=== PATIENT | male | born 1935 | race Caucasian/White ===

== ENCOUNTER → 2017-01-19 | Outpatient (CLI) | payer MEDICARE | END | disposition home or self-care (01) | LOC: CFH 15:13 | PROVIDERS: ATTEND Physician Assistant | DX: M17.11 Unilateral primary osteoarthritis, right knee (principal); M25.761 Osteophyte, right knee ==

== ENCOUNTER → 2017-02-17 | Outpatient (CLI) | payer MEDICARE | END | disposition home or self-care (01) | LOC: CFH 11:49 | PROVIDERS: ATTEND Physician Assistant | DX: S83.241A Other tear of medial meniscus, current injury, right knee, initial encounter (principal); S83.281A Other tear of lateral meniscus, current injury, right knee, initial encounter; M22.41 Chondromalacia patellae, right knee; N40.0 Benign prostatic hyperplasia without lower urinary tract symptoms; E03.9 Hypothyroidism, unspecified; E11.9 Type 2 diabetes mellitus without complications; G47.39 Other sleep apnea; E78.5 Hyperlipidemia, unspecified; F32.89 Other specified depressive episodes; F41.9 Anxiety disorder, unspecified; W19.XXXA Unspecified fall, initial encounter; Y93.89 Activity, other specified; Y92.89 Other specified places as the place of occurrence of the external cause; Y99.8 Other external cause status ==

== ENCOUNTER 2017-04-05 13:17 | Emergency (ER) | payer MEDICARE ==
[~2017-04-05] VITALS: Ht 172.7 cm; Wt 96.9 kg
[2017-04-05 13:26] VITALS: BP 132/64
[2017-04-05] MEDS ORDERED: ALBUTEROL/IPRATROPIUM 2.5MG/0.5MG, 3 ML NPPB ONE (13:30)
[2017-04-05] MEDS ORDERED: ALBUTEROL/IPRATROPIUM 2.5MG/0.5MG, 3 ML ONE (13:41)
[2017-04-05 14:08] LABS: HEMATOCRIT 36.6 % (39.2-51.8); HEMOGLOBIN 12.5 g/dL (13.7-18.0); WHITE BLOOD COUNT 14.2 x10^3/uL (3.4-10)
[2017-04-05 14:13] LABS: BLOOD UREA NITROGEN 28 mg/dL (7-18)
[2017-04-05 14:18] LABS: IS PT STATUS REG ER OR PRE ER? YES
[2017-04-05 14:28] LABS: RAPID INFLUENZA A INCONCLUSIVE (Negative); RAPID INFLUENZA B INCONCLUSIVE (Negative)
== END 2017-04-05 15:16 | disposition home or self-care (01) ==
LOC: ED 14:54
DX: J09.X2 Influenza due to identified novel influenza A virus with other respiratory manifestations (principal); J45.909 Unspecified asthma, uncomplicated; J31.0 Chronic rhinitis; E11.9 Type 2 diabetes mellitus without complications; F03.90 Unspecified dementia, unspecified severity, without behavioral disturbance, psychotic disturbance, mood disturbance, and anxiety; I10 Essential (primary) hypertension; Z87.891 Personal history of nicotine dependence; Z95.1 Presence of aortocoronary bypass graft
CPT/HCPCS: 36415; 70360; 71010; 80048; 82040; 83880; 84484; 85025; 87400; 99285; J7620

== ENCOUNTER 2017-08-24 21:49 | Emergency (ER) | payer MEDICARE ==
[~2017-08-24] VITALS: Ht 172.7 cm; Wt 95.0 kg
[2017-08-24] MEDS ORDERED: DONE10TA14 PO (22:12)
[2017-08-24] MEDS ORDERED: TAMS0.4C2 PO (22:12)
[2017-08-24] MEDS ORDERED: METF500T4 PO (22:12)
[2017-08-24] MEDS ORDERED: AMIT25TA PO (22:12)
[2017-08-24] MEDS ORDERED: ALPR1TAB6 PO (22:12)
[2017-08-24] MEDS ORDERED: LABE200T3 PO (22:12)
[2017-08-24] MEDS ORDERED: ROSU10TA PO (22:12)
[2017-08-24] MEDS ORDERED: SERT50TA5 PO (22:12)
[2017-08-24 23:46] VITALS: BP 152/66
== END 2017-08-24 23:56 | disposition home or self-care (01) ==
LOC: ED 23:15
DX: S16.1XXA Strain of muscle, fascia and tendon at neck level, initial encounter (principal); S09.90XA Unspecified injury of head, initial encounter; I10 Essential (primary) hypertension; E11.9 Type 2 diabetes mellitus without complications; J45.909 Unspecified asthma, uncomplicated; Z88.5 Allergy status to narcotic agent; W18.30XA Fall on same level, unspecified, initial encounter; Y93.89 Activity, other specified; Y92.009 Unspecified place in unspecified non-institutional (private) residence as the place of occurrence of the external cause; Y99.8 Other external cause status
CPT/HCPCS: 70450; 72125; 99284

== ENCOUNTER 2018-10-09 12:48 | Inpatient (IN) | payer MEDICARE ==
[~2018-10-09] VITALS: Ht 170.2 cm; Wt 81.1 kg
[~2018-10-09 12:48] MED LIST: ALPR1TAB6 PO; AMIT25TA PO; BISA10SU54 PR; DONE10TA14 PO; DRON2.5C2 PO; HUM100IN4 SQ-INSULIN; HYDR-3237 PO; INSU100I11 SQ-INSULIN; INSU100I13 SQ-INSULIN; LABE200T6 PO; LISI-167 PO; MELA1TAB15 PO; MELO15TA24 PO; MEMA5TAB PO; METF500T17 PO; METH750T2 PO; PIPE3.373 IV; POLY17PO5 PO; ROSU10TA2 PO; SENN-177 PO; SERT50TA28 PO; TAMS0.4C2 PO; TRAZ-137 PO
--- NOTE | 2018-10-09 13:07 | NUR ---
TASK RN: PT KJ RODRIGUEZ FROM HOME FOR GENERALIZED WEAKNESS X7 DAYS SINCE GETTING OUT OF REHAB AFTER CERVICAL LAMINECTOMY. PER JENNIFER, STATES WHILE IN REHAB SEVERAL MEDICATION CHANGES MADE, UNKNOWN WHICH ONES. UPON ARRIVAL TO ER PT A&OX4, EQUAL STRONG BUSHLER. CONNECTED TO ALL MONITORING, VSS. PERSISTENT COUGH PT STATES HAS HAD "FOR A WHILE". TECHS AT BEDSIDE PLACING LINE. CALL LIGHT WITHIN REACH. AWAITING MD ASSESSMENT AND ORDERS AT THIS TIME. REPORT GIVEN TO KASSANDRA DENT
--- NOTE | 2018-10-09 13:25 | NUR ---
REPORT TO NAHEED DENT.
--- NOTE | 2018-10-09 13:43 | NUR ---
PT RESTING IN BED, NO ACUTE SIGNS OF DISTRESS. PT IS ORIENTED TO SELF AND PLACE ONLY. MD VICK SAID THAT PT MAY HAVE CAD BECAUSE THERE IS A MIDSTERNAL SCAR PRESENT. PT IS VERY WEAK AND LETHARGIC, BUT RESPONDS APPROPRIATELY WHEN SPOKEN TO. VS ARE STABLE. NICANOR SAYS, "I'M GOING TO ORDER LABS, URINE, AND HE WILL MOST LIKELY BE ADMITTED.
[2018-10-09] MEDS ORDERED: SODIUM CHLORIDE FLUSH 10ML SYR IVF ONE (14:00)
--- NOTE | 2018-10-09 14:08 | NUR ---
TASK RN: PER ERP, STRAIGHT CATH UA SAMPLE. PT NON-COMPLIANT WITH PROCEDURE. ERP MADE AWARE. PRIMARY RNLATHA
[2018-10-09 14:48] LABS: BASOPHILS # (AUTO) 0.08 x10^3/uL (0-0.1); BASOPHILS % (AUTO) 1 % (0-1); EOSINOPHILS # (AUTO) 0.23 x10^3/uL (0-0.4); EOSINOPHILS % (AUTO) 2 % (1-7); LYMPHOCYTES # (AUTO) 2.29 x10^3/uL (1-3.4); LYMPHOCYTES % (AUTO) 22 % (22-44); MD NO; MEAN CORPUSCULAR HGB CONC 32.8 g/dL (33.2-36.2); MEAN CORPUSCULAR VOLUME 94.2 fL (81-97); MEAN PLATELET VOLUME 7.4 fL (7.4-10.4); MONOCYTES # (AUTO) 0.52 x10^3/uL (0.2-0.8); MONOCYTES % (AUTO) 5 % (2-9); NEUTROPHILS # (AUTO) 7.38 x10^3/uL (1.8-6.8); NEUTROPHILS % (AUTO) 70 % (42-75); PLATELET COUNT 331 x10^3/uL (130-400); RED BLOOD COUNT 3.64 x10^6/uL (4.38-5.82); RED CELL DISTRIBUTION WIDTH 15.5 % (9.4-14.8)
[2018-10-09 14:58] LABS: CALCIUM 9.8 mg/dL (8.5-10.1); CHLORIDE 109 mmol/L (98-107)
--- NOTE | 2018-10-09 15:13 | NUR ---
AT BEDSIDE, PT IS STABLE WITH NO SIGNS OF DISTRESS.
[2018-10-09 15:28] LABS: ALANINE AMINOTRANSFERASE 19 U/L (12-78); ALBUMIN 2.8 g/dL (3.4-5.0); ALKALINE PHOSPHATASE 87 U/L (45-117); ANION GAP 9 mmol/L (5-15); BILIRUBIN,TOTAL 0.3 mg/dL (0.2-1.0); CREATININE 1.58 mg/dL (0.7-1.3); TOTAL PROTEIN 7.5 g/dL (6.4-8.2)
[2018-10-09] MEDS ORDERED: METF500T17 PO (16:35)
[2018-10-09] MEDS ORDERED: MEMA10TA PO (16:35)
[2018-10-09] MEDS ORDERED: LEVO50TA5 PO (16:35)
[2018-10-09] MEDS ORDERED: OMEP-110 PO (16:35)
[2018-10-09] MEDS ORDERED: FENO43CA3 PO (16:35)
[2018-10-09] MEDS ORDERED: ALOG6.25 PO (16:35)
--- NOTE | 2018-10-09 17:03 | NUR ---
PT INCONTINENT OF URINE, IS NOT COOPERATIVE WITH STRIAGHT CATH AND GETS EXTREMEMLY AGGITATED. WHILE EXPLAINING PROCEDURE TO PT HE STARTED TO VOID AND I WAS ABLE TO COLLECT THE URINE IN A URINAL. DR FREGOSO INFORMED AND URINE SENT TO LAB.
[2018-10-09] MEDS ORDERED: INSU100C5 SQ-INSULIN (17:07)
[2018-10-09] MEDS ORDERED: INSU100V8 SQ (17:07)
[2018-10-09 17:27] LABS: MICROSCOPIC INDICATED
[2018-10-09 17:28] LABS: CULTURE INDICATED? YES
[2018-10-09] MEDS ORDERED: ACETAMINOPHEN 325 MG TABLET PO PRN (18:00)
[2018-10-09] MEDS ORDERED: morphine SULFATE 10 MG/ML, 1ML IVPush PRN (18:00)
[2018-10-09] MEDS ORDERED: OXYcodone IR 5MG TABLET PO PRN (18:00)
[2018-10-09] MEDS ORDERED: DOCUSATE 100 MG CAPSULE PO PRN (18:00)
[2018-10-09] MEDS ORDERED: POLYETHYLENE GLYCOL 17 GM PACKET PO PRN (18:00)
[2018-10-09] MEDS ORDERED: NITROGLYCERIN 0.4 MG BOTTLE (25 TABS) SL PRN (18:00)
[2018-10-09] MEDS ORDERED: TRAZODONE 100MG TABLET PO PRN (18:00)
[2018-10-09] MEDS ORDERED: BISACODYL 10 MG SUPP PR PRN (18:00)
[2018-10-09] MEDS ORDERED: GUAIFENESIN/COD200MG-20MG/10ML LIQUID PO PRN (18:00)
[2018-10-09] MEDS ORDERED: ONDANSETRON 2MG/ML, 2ML IVPush PRN (18:00)
[2018-10-09 18:58] VITALS: BP 169/67
[2018-10-09] MEDS: LACTATED RINGERS 1,000 ML IV SCH (19:17)
[2018-10-09] MEDS: HEPARIN 5,000 UNITS/ML, 1ML SQ SCH (21:52)
[2018-10-09] MEDS: INSULIN LISPRO 100 UNITS/ML, PEN SQ-INSULIN SCH (21:52)
[2018-10-09] MEDS: INSULIN GLARGINE 100 UNITS/ML, PEN SQ-INSULIN SCH (21:52)
[2018-10-09] MEDS: GUAIFENESIN 200 MG TABLET PO SCH (21:53)
[2018-10-09] MEDS: OMEPRAZOLE 20 MG CAPSULE.DR PO SCH (21:53)
[2018-10-09] MEDS: FLUCONAZOLE 200 MG/100 ML 100 ML IV SCH (21:53)
[2018-10-09] MEDS: FENOFIBRATE 54 MG TABLET PO SCH (21:54)
[2018-10-09] MEDS: MEMANTINE 5MG TABLET PO SCH (21:54)
[2018-10-09] MEDS: ATORVASTATIN 40 MG TABLET PO SCH (21:54)
[2018-10-10] VITALS (7 sets, daily range): BP systolic 108–190; BP diastolic 60–87
[2018-10-10] MEDS: hydrALAzine 20 MG/ML, 1ML IVPush PRN ×2 (01:31→07:36)
[2018-10-10 04:38] LABS: BASOPHILS # (AUTO) 0.11 x10^3/uL (0-0.1); BASOPHILS % (AUTO) 1 % (0-1); EOSINOPHILS # (AUTO) 0.35 x10^3/uL (0-0.4); EOSINOPHILS % (AUTO) 3 % (1-7); LYMPHOCYTES # (AUTO) 2.26 x10^3/uL (1-3.4); LYMPHOCYTES % (AUTO) 19 % (22-44); MD NO; MEAN CORPUSCULAR HEMOGLOBIN 31.3 pg (27.5-34.5); MEAN CORPUSCULAR HGB CONC 33.2 g/dL (33.2-36.2); MEAN CORPUSCULAR VOLUME 94.3 fL (81-97); MEAN PLATELET VOLUME 7.6 fL (7.4-10.4); MONOCYTES # (AUTO) 0.74 x10^3/uL (0.2-0.8); MONOCYTES % (AUTO) 6 % (2-9); NEUTROPHILS # (AUTO) 8.19 x10^3/uL (1.8-6.8); NEUTROPHILS % (AUTO) 70 % (42-75); PLATELET COUNT 349 x10^3/uL (130-400); RED BLOOD COUNT 3.49 x10^6/uL (4.38-5.82); RED CELL DISTRIBUTION WIDTH 15.2 % (9.4-14.8)
[2018-10-10 04:47] LABS: ANION GAP 10 mmol/L (5-15); CALCIUM 9.8 mg/dL (8.5-10.1); CHLORIDE 109 mmol/L (98-107)
[2018-10-10] MEDS: HEPARIN 5,000 UNITS/ML, 1ML SQ SCH ×3 (05:16→21:54)
[2018-10-10] MEDS: GUAIFENESIN 200 MG TABLET PO SCH ×4 (05:16→20:17)
[2018-10-10] MEDS: LACTATED RINGERS 1,000 ML IV SCH ×2 (05:17→17:22)
[2018-10-10] MEDS: SENNA/DOCUSATE TABLET PO SCH (07:20)
[2018-10-10] MEDS: TAMSULOSIN 0.4 MG CAP.ER.24H PO SCH (07:21)
[2018-10-10] MEDS: OMEPRAZOLE 20 MG CAPSULE.DR PO SCH ×2 (07:21→17:20)
[2018-10-10] MEDS: DONEPEZIL 10 MG TABLET PO SCH (07:21)
[2018-10-10] MEDS: MEMANTINE 5MG TABLET PO SCH ×2 (07:21→20:17)
[2018-10-10] MEDS: LEVOTHYROXINE 50 MCG TABLET PO SCH (07:21)
[2018-10-10] MEDS: SERTRALINE 50MG TABLET PO SCH (07:21)
[2018-10-10] MEDS: INSULIN LISPRO 100 UNITS/ML, PEN SQ-INSULIN SCH ×4 (07:22→20:18)
[2018-10-10] MEDS: ALOGLIPTIN BENZOATE 12.5 MG HOMEMEDPO SCH (07:22)
[2018-10-10] MEDS: INSULIN GLARGINE 100 UNITS/ML, PEN SQ-INSULIN SCH ×2 (08:39→20:18)
[2018-10-10] MEDS ORDERED: LABETALOL 200 MG TABLET PO SCH (09:00)
[2018-10-10 10:54] LABS: TROPONIN I < 0.015 ng/mL (0.000-0.045)
[2018-10-10 16:34] LABS: TROPONIN I < 0.015 ng/mL (0.000-0.045)
[2018-10-10] MEDS: NEUTRA PHOS K 250 MG TABLET PO SCH ×2 (17:20→20:17)
[2018-10-10] MEDS: ATORVASTATIN 40 MG TABLET PO SCH (20:17)
[2018-10-10] MEDS: FENOFIBRATE 54 MG TABLET PO SCH (20:17)
[2018-10-10] MEDS: FLUCONAZOLE 200 MG/100 ML 100 ML IV SCH (21:54)
[2018-10-10 23:01] LABS: TROPONIN I < 0.015 ng/mL (0.000-0.045)
[2018-10-11 01:42] VITALS: BP 156/66
[2018-10-11] MEDS: GUAIFENESIN 200 MG TABLET PO SCH ×4 (05:16→20:19)
[2018-10-11] MEDS: HEPARIN 5,000 UNITS/ML, 1ML SQ SCH ×3 (05:17→21:49)
[2018-10-11 06:03] LABS: ANION GAP 8 mmol/L (5-15); CALCIUM 9.6 mg/dL (8.5-10.1); CHLORIDE 109 mmol/L (98-107); CREATININE 1.13 mg/dL (0.7-1.3); MEAN CORPUSCULAR HEMOGLOBIN 30.6 pg (27.5-34.5); MEAN CORPUSCULAR HGB CONC 33.2 g/dL (33.2-36.2); MEAN CORPUSCULAR VOLUME 92.4 fL (81-97); MEAN PLATELET VOLUME 7.1 fL (7.4-10.4); PLATELET COUNT 344 x10^3/uL (130-400); RED BLOOD COUNT 3.68 x10^6/uL (4.38-5.82); RED CELL DISTRIBUTION WIDTH 15.2 % (9.4-14.8)
[2018-10-11 06:44] LABS: BASOPHILS # (AUTO) 0.05 x10^3/uL (0-0.1); BASOPHILS % (AUTO) 0 % (0-1); EOSINOPHILS # (AUTO) 0.28 x10^3/uL (0-0.4); EOSINOPHILS % (AUTO) 2 % (1-7); LYMPHOCYTES # (AUTO) 2.51 x10^3/uL (1-3.4); LYMPHOCYTES % (AUTO) 18 % (22-44); MD SCAN; MONOCYTES # (AUTO) 0.57 x10^3/uL (0.2-0.8); MONOCYTES % (AUTO) 4 % (2-9); NEUTROPHILS # (AUTO) 10.82 x10^3/uL (1.8-6.8); NEUTROPHILS % (AUTO) 76 % (42-75)
[2018-10-11] MEDS: INSULIN LISPRO 100 UNITS/ML, PEN SQ-INSULIN SCH ×4 (07:00→20:34)
[2018-10-11] MEDS ORDERED: SERTRALINE 100MG TABLET ONE (07:42)
[2018-10-11 07:47] VITALS: BP 174/83
[2018-10-11] MEDS: OMEPRAZOLE 20 MG CAPSULE.DR PO SCH ×2 (07:50→16:13)
[2018-10-11] MEDS: NEUTRA PHOS K 250 MG TABLET PO SCH ×3 (07:50→20:19)
[2018-10-11] MEDS: TAMSULOSIN 0.4 MG CAP.ER.24H PO SCH (07:50)
[2018-10-11] MEDS: LEVOTHYROXINE 50 MCG TABLET PO SCH (07:50)
[2018-10-11] MEDS: DONEPEZIL 10 MG TABLET PO SCH (07:50)
[2018-10-11] MEDS: MEMANTINE 5MG TABLET PO SCH ×2 (07:51→20:19)
[2018-10-11] MEDS: SERTRALINE 50MG TABLET PO SCH (07:51)
[2018-10-11] MEDS: ALOGLIPTIN BENZOATE 12.5 MG HOMEMEDPO SCH (07:56)
[2018-10-11] MEDS: SENNA/DOCUSATE TABLET PO SCH (07:57)
[2018-10-11] MEDS: INSULIN GLARGINE 100 UNITS/ML, PEN SQ-INSULIN SCH ×2 (08:37→20:27)
[2018-10-11 13:35] VITALS: BP_SYST 122; BP_SYST 175; BP_DIAS 76; BP_DIAS 87
[2018-10-11] MEDS: LACTATED RINGERS 1,000 ML IV SCH (16:27)
[2018-10-11 16:32] VITALS: BP 178/89
[2018-10-11] MEDS: hydrALAzine 20 MG/ML, 1ML IVPush PRN (16:32)
[2018-10-11 16:57] VITALS: BP 168/77
[2018-10-11 18:26] VITALS: BP 156/81
[2018-10-11] MEDS: FENOFIBRATE 54 MG TABLET PO SCH (20:19)
[2018-10-11] MEDS: ATORVASTATIN 40 MG TABLET PO SCH (20:19)
[2018-10-12] VITALS (8 sets, daily range): BP systolic 92–214; BP diastolic 63–92
[2018-10-12] MEDS: GUAIFENESIN 200 MG TABLET PO SCH ×4 (05:38→21:56)
[2018-10-12] MEDS: HEPARIN 5,000 UNITS/ML, 1ML SQ SCH ×3 (05:38→22:02)
[2018-10-12 05:41] LABS: BASOPHILS # (AUTO) 0.03 x10^3/uL (0-0.1); BASOPHILS % (AUTO) 0 % (0-1); EOSINOPHILS # (AUTO) 0.42 x10^3/uL (0-0.4); EOSINOPHILS % (AUTO) 3 % (1-7); LYMPHOCYTES # (AUTO) 2.56 x10^3/uL (1-3.4); LYMPHOCYTES % (AUTO) 18 % (22-44); MD NO; MEAN CORPUSCULAR HEMOGLOBIN 31.4 pg (27.5-34.5); MEAN CORPUSCULAR HGB CONC 33.2 g/dL (33.2-36.2); MEAN CORPUSCULAR VOLUME 94.4 fL (81-97); MEAN PLATELET VOLUME 7.4 fL (7.4-10.4); MONOCYTES # (AUTO) 0.62 x10^3/uL (0.2-0.8); MONOCYTES % (AUTO) 4 % (2-9); NEUTROPHILS # (AUTO) 10.44 x10^3/uL (1.8-6.8); NEUTROPHILS % (AUTO) 74 % (42-75); PLATELET COUNT 362 x10^3/uL (130-400); RED BLOOD COUNT 3.44 x10^6/uL (4.38-5.82); RED CELL DISTRIBUTION WIDTH 15.1 % (9.4-14.8)
[2018-10-12 05:50] LABS: CHLORIDE 107 mmol/L (98-107)
[2018-10-12 05:56] LABS: ANION GAP 8 mmol/L (5-15); CALCIUM 9.2 mg/dL (8.5-10.1); CREATININE 1.03 mg/dL (0.7-1.3)
[2018-10-12] MEDS: SENNA/DOCUSATE TABLET PO SCH (07:28)
[2018-10-12] MEDS: INSULIN LISPRO 100 UNITS/ML, PEN SQ-INSULIN SCH ×4 (08:13→22:01)
[2018-10-12] MEDS: LEVOTHYROXINE 50 MCG TABLET PO SCH (08:14)
[2018-10-12] MEDS: MEMANTINE 5MG TABLET PO SCH ×2 (08:43→21:56)
[2018-10-12] MEDS: SERTRALINE 50MG TABLET PO SCH (08:43)
[2018-10-12] MEDS: INSULIN GLARGINE 100 UNITS/ML, PEN SQ-INSULIN SCH ×2 (08:43→22:02)
[2018-10-12] MEDS: DONEPEZIL 10 MG TABLET PO SCH (08:43)
[2018-10-12] MEDS: OMEPRAZOLE 20 MG CAPSULE.DR PO SCH ×2 (08:43→15:52)
[2018-10-12] MEDS: NEUTRA PHOS K 250 MG TABLET PO SCH ×3 (08:43→21:54)
[2018-10-12] MEDS: TAMSULOSIN 0.4 MG CAP.ER.24H PO SCH (08:44)
[2018-10-12] MEDS: ALOGLIPTIN BENZOATE 12.5 MG HOMEMEDPO SCH (08:44)
[2018-10-12] MEDS: FENOFIBRATE 54 MG TABLET PO SCH (21:54)
[2018-10-12] MEDS: ATORVASTATIN 40 MG TABLET PO SCH (21:55)
[2018-10-13] VITALS (7 sets, daily range): BP systolic 116–217; BP diastolic 66–96
[2018-10-13] MEDS: GUAIFENESIN 200 MG TABLET PO SCH ×4 (05:17→21:10)
[2018-10-13] MEDS: LEVOTHYROXINE 50 MCG TABLET PO SCH (05:17)
[2018-10-13] MEDS: HEPARIN 5,000 UNITS/ML, 1ML SQ SCH ×3 (05:18→22:23)
[2018-10-13] MEDS: INSULIN LISPRO 100 UNITS/ML, PEN SQ-INSULIN SCH ×4 (08:15→21:11)
[2018-10-13] MEDS: ALOGLIPTIN BENZOATE 12.5 MG HOMEMEDPO SCH (09:00)
[2018-10-13] MEDS ORDERED: AMLODIPINE 2.5 MG TABLET ONE (09:44)
[2018-10-13] MEDS: SENNA/DOCUSATE TABLET PO SCH (09:52)
[2018-10-13] MEDS: SERTRALINE 50MG TABLET PO SCH (09:52)
[2018-10-13] MEDS: INSULIN GLARGINE 100 UNITS/ML, PEN SQ-INSULIN SCH ×2 (09:54→21:11)
[2018-10-13] MEDS: NEUTRA PHOS K 250 MG TABLET PO SCH ×3 (09:54→21:10)
[2018-10-13] MEDS: DONEPEZIL 10 MG TABLET PO SCH (09:54)
[2018-10-13] MEDS: OMEPRAZOLE 20 MG CAPSULE.DR PO SCH ×2 (09:54→16:45)
[2018-10-13] MEDS: MEMANTINE 5MG TABLET PO SCH ×2 (09:55→21:09)
[2018-10-13] MEDS: AMLODIPINE 2.5 MG TABLET PO SCH (10:00)
[2018-10-13] MEDS: FENOFIBRATE 54 MG TABLET PO SCH (21:10)
[2018-10-13] MEDS: ATORVASTATIN 40 MG TABLET PO SCH (21:10)
[2018-10-14 01:29] VITALS: BP 150/83
[2018-10-14] MEDS: HEPARIN 5,000 UNITS/ML, 1ML SQ SCH ×3 (06:00→21:40)
[2018-10-14] MEDS: GUAIFENESIN 200 MG TABLET PO SCH ×4 (06:00→21:34)
[2018-10-14] MEDS: LEVOTHYROXINE 50 MCG TABLET PO SCH (06:00)
[2018-10-14] MEDS: INSULIN LISPRO 100 UNITS/ML, PEN SQ-INSULIN SCH ×4 (07:00→21:37)
[2018-10-14] MEDS: OMEPRAZOLE 20 MG CAPSULE.DR PO SCH ×2 (08:00→16:57)
[2018-10-14] MEDS: MEMANTINE 5MG TABLET PO SCH ×2 (09:00→11:26)
[2018-10-14] MEDS: DONEPEZIL 10 MG TABLET PO SCH ×2 (09:00→11:25)
[2018-10-14] MEDS: ALOGLIPTIN BENZOATE 12.5 MG HOMEMEDPO SCH (09:00)
[2018-10-14] MEDS: INSULIN GLARGINE 100 UNITS/ML, PEN SQ-INSULIN SCH ×2 (09:00→21:39)
[2018-10-14] MEDS: SERTRALINE 50MG TABLET PO SCH ×2 (09:00→11:26)
[2018-10-14] MEDS: NEUTRA PHOS K 250 MG TABLET PO SCH ×3 (09:00→21:35)
[2018-10-14] MEDS: AMLODIPINE 2.5 MG TABLET PO SCH ×2 (09:00→11:26)
[2018-10-14] MEDS: SENNA/DOCUSATE TABLET PO SCH (09:00)
[2018-10-14 11:18] VITALS: BP 179/89
[2018-10-14 16:54] VITALS: BP 180/84
[2018-10-14] MEDS: metFORMIN 500 MG TABLET PO SCH (16:57)
[2018-10-14] MEDS: hydrALAzine 20 MG/ML, 1ML IVPush PRN (17:06)
[2018-10-14 20:21] VITALS: BP 137/75
[2018-10-14] MEDS: ATORVASTATIN 40 MG TABLET PO SCH (21:34)
[2018-10-14] MEDS: FENOFIBRATE 54 MG TABLET PO SCH (21:35)
[2018-10-15 03:45] VITALS: BP 143/82
[2018-10-15 05:47] LABS: BASOPHILS # (AUTO) 0.04 x10^3/uL (0-0.1); BASOPHILS % (AUTO) 0 % (0-1); EOSINOPHILS % (AUTO) 2 % (1-7); LYMPHOCYTES # (AUTO) 2.92 x10^3/uL (1-3.4); LYMPHOCYTES % (AUTO) 21 % (22-44); MD NO; MEAN CORPUSCULAR HEMOGLOBIN 31.2 pg (27.5-34.5); MEAN CORPUSCULAR HGB CONC 33.2 g/dL (33.2-36.2); MEAN CORPUSCULAR VOLUME 94.1 fL (81-97); MEAN PLATELET VOLUME 7.3 fL (7.4-10.4); MONOCYTES # (AUTO) 0.69 x10^3/uL (0.2-0.8); MONOCYTES % (AUTO) 5 % (2-9); NEUTROPHILS # (AUTO) 9.84 x10^3/uL (1.8-6.8); NEUTROPHILS % (AUTO) 71 % (42-75); PLATELET COUNT 431 x10^3/uL (130-400)
[2018-10-15 05:59] LABS: CHLORIDE 109 mmol/L (98-107)
[2018-10-15 06:03] LABS: ANION GAP 7 mmol/L (5-15); CALCIUM 9.9 mg/dL (8.5-10.1)
[2018-10-15] MEDS: LEVOTHYROXINE 50 MCG TABLET PO SCH (06:44)
[2018-10-15] MEDS: GUAIFENESIN 200 MG TABLET PO SCH ×4 (06:44→20:47)
[2018-10-15] MEDS: HEPARIN 5,000 UNITS/ML, 1ML SQ SCH ×3 (06:46→22:06)
[2018-10-15] MEDS: INSULIN LISPRO 100 UNITS/ML, PEN SQ-INSULIN SCH ×4 (06:51→21:03)
[2018-10-15 06:56] VITALS: BP 156/83
[2018-10-15] MEDS: NEUTRA PHOS K 250 MG TABLET PO SCH ×3 (08:35→20:46)
[2018-10-15] MEDS: metFORMIN 500 MG TABLET PO SCH (08:35)
[2018-10-15] MEDS: OMEPRAZOLE 20 MG CAPSULE.DR PO SCH ×2 (08:36→16:38)
[2018-10-15] MEDS: MEMANTINE 5MG TABLET PO SCH ×2 (08:36→20:47)
[2018-10-15] MEDS: SENNA/DOCUSATE TABLET PO SCH (08:37)
[2018-10-15] MEDS: INSULIN GLARGINE 100 UNITS/ML, PEN SQ-INSULIN SCH ×2 (08:37→21:03)
[2018-10-15] MEDS: ALOGLIPTIN BENZOATE 12.5 MG HOMEMEDPO SCH (08:38)
[2018-10-15 12:29] VITALS: BP 146/82
[2018-10-15 18:52] VITALS: BP 132/76
[2018-10-15] MEDS: FENOFIBRATE 54 MG TABLET PO SCH (20:46)
[2018-10-15] MEDS: ATORVASTATIN 40 MG TABLET PO SCH (20:47)
[2018-10-16 01:22] VITALS: BP 142/81
[2018-10-16] MEDS: GUAIFENESIN 200 MG TABLET PO SCH ×2 (06:20→11:08)
[2018-10-16] MEDS: LEVOTHYROXINE 50 MCG TABLET PO SCH (06:20)
[2018-10-16] MEDS: HEPARIN 5,000 UNITS/ML, 1ML SQ SCH ×2 (06:21→14:02)
[2018-10-16 06:50] VITALS: BP 140/85
[2018-10-16] MEDS: NEUTRA PHOS K 250 MG TABLET PO SCH (07:37)
[2018-10-16] MEDS: AMLODIPINE 2.5 MG TABLET PO SCH (07:37)
[2018-10-16] MEDS: metFORMIN 500 MG TABLET PO SCH (07:37)
[2018-10-16] MEDS: SERTRALINE 50MG TABLET PO SCH (07:37)
[2018-10-16] MEDS: OMEPRAZOLE 20 MG CAPSULE.DR PO SCH (07:37)
[2018-10-16] MEDS: MEMANTINE 5MG TABLET PO SCH (07:37)
[2018-10-16] MEDS: DONEPEZIL 10 MG TABLET PO SCH (07:37)
[2018-10-16] MEDS: INSULIN LISPRO 100 UNITS/ML, PEN SQ-INSULIN SCH ×2 (07:38→11:08)
[2018-10-16] MEDS: INSULIN GLARGINE 100 UNITS/ML, PEN SQ-INSULIN SCH (07:38)
[2018-10-16] MEDS: SENNA/DOCUSATE TABLET PO SCH (07:40)
[2018-10-16] MEDS: ALOGLIPTIN BENZOATE 12.5 MG HOMEMEDPO SCH (07:40)
[2018-10-16 10:16] LABS: BASOPHILS # (AUTO) 0.03 x10^3/uL (0-0.1); BASOPHILS % (AUTO) 0 % (0-1); EOSINOPHILS % (AUTO) 2 % (1-7); LYMPHOCYTES # (AUTO) 2.32 x10^3/uL (1-3.4); LYMPHOCYTES % (AUTO) 18 % (22-44); MD NO; MEAN CORPUSCULAR HEMOGLOBIN 31.7 pg (27.5-34.5); MEAN CORPUSCULAR HGB CONC 33.6 g/dL (33.2-36.2); MEAN CORPUSCULAR VOLUME 94.3 fL (81-97); MEAN PLATELET VOLUME 6.8 fL (7.4-10.4); MONOCYTES # (AUTO) 0.22 x10^3/uL (0.2-0.8); MONOCYTES % (AUTO) 2 % (2-9); NEUTROPHILS # (AUTO) 10.02 x10^3/uL (1.8-6.8); NEUTROPHILS % (AUTO) 78 % (42-75); PLATELET COUNT 411 x10^3/uL (130-400); RED BLOOD COUNT 3.81 x10^6/uL (4.38-5.82); RED CELL DISTRIBUTION WIDTH 15.1 % (9.4-14.8)
[2018-10-16 10:25] LABS: ANION GAP 9 mmol/L (5-15); CALCIUM 9.6 mg/dL (8.5-10.1); CHLORIDE 107 mmol/L (98-107); CREATININE 1.33 mg/dL (0.7-1.3)
[2018-10-16 13:53] VITALS: BP 138/76
[2018-10-16] MEDS ORDERED: HEPA50002 SQ (14:06)
[2018-10-16] MEDS ORDERED: GUAI200T3 PO (14:06)
[2018-10-16] MEDS ORDERED: INSU100V8 SQ (14:06)
[2018-10-16] MEDS ORDERED: METF500T17 PO (14:06)
[2018-10-16] MEDS ORDERED: AMLO2.5T5 PO (14:06)
== END 2018-10-16 16:49 | DRG 682 ==
LOC: ED 14:36 → EDIP 16:41 → 3NW 18:07 → 5SO 10-10 10:23 → 4NOR 10-13 17:18
PROVIDERS: ADMIT Internal Medicine; ATTEND Internal Medicine
PROC: 0T9B70Z Drainage of Bladder with Drainage Device, Via Natural or Artificial Opening (ICD-10-PCS; principal; 2018-10-09)
DX: N17.9 Acute kidney failure, unspecified (principal); G93.41 Metabolic encephalopathy; E44.0 Moderate protein-calorie malnutrition; D64.9 Anemia, unspecified; D72.829 Elevated white blood cell count, unspecified; E11.21 Type 2 diabetes mellitus with diabetic nephropathy; E11.22 Type 2 diabetes mellitus with diabetic chronic kidney disease; N18.2 Chronic kidney disease, stage 2 (mild); I12.9 Hypertensive chronic kidney disease with stage 1 through stage 4 chronic kidney disease, or unspecified chronic kidney disease; I95.1 Orthostatic hypotension; E83.42 Hypomagnesemia; E03.9 Hypothyroidism, unspecified; F03.90 Unspecified dementia, unspecified severity, without behavioral disturbance, psychotic disturbance, mood disturbance, and anxiety; E78.5 Hyperlipidemia, unspecified; J45.909 Unspecified asthma, uncomplicated; K21.9 Gastro-esophageal reflux disease without esophagitis; R62.7 Adult failure to thrive; I25.10 Atherosclerotic heart disease of native coronary artery without angina pectoris; G47.33 Obstructive sleep apnea (adult) (pediatric); R29.6 Repeated falls; N40.1 Benign prostatic hyperplasia with lower urinary tract symptoms; N39.498 Other specified urinary incontinence; I25.2 Old myocardial infarction; Z82.3 Family history of stroke; Z68.28 Body mass index [BMI] 28.0-28.9, adult; Z88.8 Allergy status to other drugs, medicaments and biological substances; Z88.6 Allergy status to analgesic agent; Z79.4 Long term (current) use of insulin; Z83.3 Family history of diabetes mellitus; Z87.440 Personal history of urinary (tract) infections; Z87.891 Personal history of nicotine dependence; Z95.1 Presence of aortocoronary bypass graft; Z95.5 Presence of coronary angioplasty implant and graft; Z82.49 Family history of ischemic heart disease and other diseases of the circulatory system
CPT/HCPCS: 36415; 70450; 71045; 80048; 80053; 81001; 82436; 82570; 82607; 82962; 83735; 83935; 84100; 84133; 84300; 84439; 84443; 84484; 85025; 87040; 87086; 93005; 99285; G0378; J1644; J0360; J1450; J1815; J7120

== ENCOUNTER → 2018-11-09 | Outpatient (CLI) | payer MEDICARE ==
[~2018-11-09] MED LIST changes: +ALOG6.25 PO; +AMLO2.5T5 PO; +FENO43CA3 PO; +GUAI200T3 PO; +HEPA50002 SQ; +INSU100C5 SQ-INSULIN; +INSU100V8 SQ; +LEVO50TA5 PO; +MEMA10TA PO; +OMEP-110 PO
[2018-11-09 15:46] LABS: BASOPHILS # (AUTO) 0.06 x10^3/uL (0-0.1); BASOPHILS % (AUTO) 1 % (0-1); EOSINOPHILS # (AUTO) 0.23 x10^3/uL (0-0.4); EOSINOPHILS % (AUTO) 3 % (1-7); LYMPHOCYTES # (AUTO) 2.66 x10^3/uL (1-3.4); LYMPHOCYTES % (AUTO) 29 % (22-44); MD NO; MEAN CORPUSCULAR HEMOGLOBIN 30.9 pg (27.5-34.5); MEAN CORPUSCULAR HGB CONC 32.9 g/dL (33.2-36.2); MEAN CORPUSCULAR VOLUME 94.1 fL (81-97); MEAN PLATELET VOLUME 7.6 fL (7.4-10.4); MONOCYTES # (AUTO) 0.41 x10^3/uL (0.2-0.8); MONOCYTES % (AUTO) 5 % (2-9); NEUTROPHILS % (AUTO) 63 % (42-75); PLATELET COUNT 206 x10^3/uL (130-400); RED BLOOD COUNT 3.45 x10^6/uL (4.38-5.82); RED CELL DISTRIBUTION WIDTH 15.5 % (9.4-14.8)
[2018-11-09 15:54] LABS: ALANINE AMINOTRANSFERASE 21 U/L (12-78); ALBUMIN 3.4 g/dL (3.4-5.0); ANION GAP 4 mmol/L (5-15); CALCIUM 9.6 mg/dL (8.5-10.1); CHLORIDE 111 mmol/L (98-107)
[2018-11-09 15:56] LABS: ALKALINE PHOSPHATASE 105 U/L (45-117); BILIRUBIN,TOTAL 0.2 mg/dL (0.2-1.0); TOTAL PROTEIN 7.3 g/dL (6.4-8.2)
== END | disposition home or self-care (01) ==
LOC: CFH 13:59
PROVIDERS: ATTEND Nurse Practitioner Primary Care
DX: Z13.220 Encounter for screening for lipoid disorders (principal); Z12.11 Encounter for screening for malignant neoplasm of colon; Z12.5 Encounter for screening for malignant neoplasm of prostate; M47.814 Spondylosis without myelopathy or radiculopathy, thoracic region; J18.9 Pneumonia, unspecified organism; E11.9 Type 2 diabetes mellitus without complications; E03.9 Hypothyroidism, unspecified; E78.5 Hyperlipidemia, unspecified; F32.89 Other specified depressive episodes; N40.0 Benign prostatic hyperplasia without lower urinary tract symptoms; G47.39 Other sleep apnea; M62.81 Muscle weakness (generalized); R20.2 Paresthesia of skin; G47.09 Other insomnia; I49.9 Cardiac arrhythmia, unspecified; R06.02 Shortness of breath; D64.9 Anemia, unspecified; N28.9 Disorder of kidney and ureter, unspecified; F41.9 Anxiety disorder, unspecified; M54.5 Low back pain; M25.561 Pain in right knee; K92.1 Melena; R13.10 Dysphagia, unspecified; E83.52 Hypercalcemia; G31.84 Mild cognitive impairment of uncertain or unknown etiology; R39.15 Urgency of urination
CPT/HCPCS: 36415; 71046; 80053; 85025

== ENCOUNTER 2019-03-05 14:08 | Emergency (ER) | payer MEDICARE ==
[~2019-03-05] VITALS: Ht 180.3 cm; Wt 98.0 kg
[~2019-03-05 14:08] MED LIST changes: -GUAI200T3 PO; +GUAI200T37 PO
[2019-03-05 15:20] LABS: BASOPHILS # (AUTO) 0.03 x10^3/uL (0-0.1); BASOPHILS % (AUTO) 0 % (0-1); EOSINOPHILS # (AUTO) 0.16 x10^3/uL (0-0.4); EOSINOPHILS % (AUTO) 2 % (1-7); LYMPHOCYTES # (AUTO) 1.39 x10^3/uL (1-3.4); LYMPHOCYTES % (AUTO) 17 % (22-44); MD NO; MEAN CORPUSCULAR HEMOGLOBIN 30.2 pg (27.5-34.5); MEAN CORPUSCULAR VOLUME 91.6 fL (81-97); MEAN PLATELET VOLUME 7.4 fL (7.4-10.4); MONOCYTES # (AUTO) 0.41 x10^3/uL (0.2-0.8); MONOCYTES % (AUTO) 5 % (2-9); NEUTROPHILS # (AUTO) 6.25 x10^3/uL (1.8-6.8); NEUTROPHILS % (AUTO) 76 % (42-75); PLATELET COUNT 186 x10^3/uL (130-400); RED BLOOD COUNT 4.03 x10^6/uL (4.38-5.82); RED CELL DISTRIBUTION WIDTH 13.7 % (9.4-14.8)
[2019-03-05 15:35] LABS: CHLORIDE 111 mmol/L (98-107)
--- NOTE | 2019-03-05 15:35 | NUR ---
SPOKE WITH REGUARDING PT AND SHE WOULD LIKE TO BE CALLED WHEN RESULTS ARE IN FROM ED EVAL.
--- NOTE | 2019-03-05 15:36 | NUR ---
PT TO CT SCAN
[2019-03-05 15:37] LABS: ALBUMIN 3.2 g/dL (3.4-5.0); ANION GAP 6 mmol/L (5-15); CALCIUM 9.3 mg/dL (8.5-10.1); CREATININE 1.17 mg/dL (0.7-1.3)
[2019-03-05 15:58] VITALS: BP 165/78
--- NOTE | 2019-03-05 15:58 | NUR ---
PT AT THIS TIME WOULD NOT LIKE A STRAIGHT CATH. PT WOULD LIKE TO WAIT TO ATTEMPT TO PEE FIRST. PT GIVEN URINAL BEDSIDE. INSTRUCTED TO PRESS CALL LIGHT WHEN READY TO PEE. VSS
--- NOTE | 2019-03-05 17:51 | NUR ---
Patient/Caregiver given discharge instructions and they have confirmed that they understand the instructions. Patient ambulatory with steady gait.
== END 2019-03-05 17:52 | disposition home or self-care (01) ==
LOC: ED 17:15
DX: S40.011A Contusion of right shoulder, initial encounter (principal); E78.5 Hyperlipidemia, unspecified; K21.9 Gastro-esophageal reflux disease without esophagitis; I10 Essential (primary) hypertension; J45.909 Unspecified asthma, uncomplicated; Z90.49 Acquired absence of other specified parts of digestive tract; Z95.1 Presence of aortocoronary bypass graft; Z88.6 Allergy status to analgesic agent; W19.XXXA Unspecified fall, initial encounter; Y93.89 Activity, other specified; Y92.009 Unspecified place in unspecified non-institutional (private) residence as the place of occurrence of the external cause; Y99.8 Other external cause status
CPT/HCPCS: 36415; 70450; 72072; 80048; 82040; 85025; 93005; 99284